=== PATIENT | female | born 1990 | race Caucasian/White ===

== ENCOUNTER 2021-06-08 20:33 | Emergency (ER) | payer MEDICAID ==
[~2021-06-08] VITALS: Ht 157.5 cm; Wt 72.6 kg
[2021-06-08 20:40] VITALS: BP 138/93
--- NOTE | 2021-06-08 20:45 | NUR ---
TREVER TOBIN TAKEN TO BED #5
[2021-06-08] MEDS ORDERED: DOPPLER MC ONE (20:46)
--- NOTE | 2021-06-08 20:57 | NUR ---
doppler used for heart tones rate of 130bpm on the right upper quadrant. ERMD at bedside to hear
[2021-06-08] MEDS ORDERED: NACL 0.9% 1,000 ML IV ONE (21:25)
[2021-06-08 21:39] LABS: BASOPHILS % (AUTO) 0.5 % (0.0-2.0); EOSINOPHILS # (AUTO) 0.1 K/uL (0-0.4); EOSINOPHILS % (AUTO) 0.9 % (0.0-4.0); HEMATOCRIT 38.6 % (36-48); HEMOGLOBIN 13.1 g/dL (12.0-16.0); LYMPHOCYTES # (AUTO) 2.7 K/uL (2.5-16.5); LYMPHOCYTES % (AUTO) 36.1 % (20.5-51.1); MEAN CORPUSCULAR HEMOGLOBIN 30 pg (27-31); MEAN CORPUSCULAR HGB CONC 34 g/dL (33-37); MEAN CORPUSCULAR VOLUME 88.1 fL (80-94); MONOCYTES # (AUTO) 0.6 K/uL (0.8-1.0); MONOCYTES % (AUTO) 8.1 % (1.7-9.3); NEUTROPHILS # (AUTO) 4.1 K/uL (1.8-7.7); NEUTROPHILS % (AUTO) 54.4 % (42.2-75.2); PLATELET COUNT (AUTO) 221 K/uL (140-450); RED BLOOD CELL COUNT(AUTO) 4.38 MIL/uL (4.20-5.40); RED CELL DISTRIBUTION WIDTH 13.8 % (11.6-13.7); WHITE BLOOD COUNT (AUTO) 7.5 K/uL (4.8-10.8)
[2021-06-08 22:04] LABS: ALBUMIN 2.6 g/dL (3.4-5.0); ANION GAP 12.7 (8-16); CARBON DIOXIDE 23.7 mmol/L (21-32); CREATININE 0.6 mg/dL (0.6-1.3); POTASSIUM 3.4 mmol/L (3.5-5.1); TOTAL BILIRUBIN 0.2 mg/dL (0.0-1.0)
--- NOTE | 2021-06-08 22:31 | NUR ---
USED [employer] FOR CONSENT ON CTA OF CHEST WITH IV CONTRAST #[id number]
--- NOTE | 2021-06-08 22:47 | NUR ---
patient to CT via w/c
--- NOTE | 2021-06-08 22:57 | NUR ---
patient back from CT
--- NOTE | 2021-06-08 23:33 | NUR ---
patient ambulated to the bathroom
--- NOTE | 2021-06-09 00:11 | NUR ---
patient ambulated to the bathroom for urine collection
[2021-06-09 00:43] LABS: APPEARANCE,URINE CLEAR (CLEAR); BILIRUBIN,URINE NEGATIVE (NEGATIVE); BLOOD, URINE NEGATIVE (NEGATIVE); COLOR,URINE YELLOW (YELLOW); LEUKOCYTE ESTERASE ,URINE NEGATIVE (NEGATIVE); NITRITE, URINE NEGATIVE (NEGATIVE); UGLUCOSE NEGATIVE (NEGATIVE)
--- NOTE | 2021-06-09 01:00 | NUR ---
IV removed, catheter intact and site benign. Applied folded 4x4 gauze and tape to stop bleeding at left AC and right wrist.
[2021-06-09 01:18] VITALS: BP 137/83
--- NOTE | 2021-06-09 01:18 | NUR ---
Patient discharged with v/s stable. Written and verbal after care instructions given and explained. Patient verbalized understanding. Ambulatory with steady gait. ID band removed. All questions addressed prior to discharge. Advised to follow up with PMD.
== END 2021-06-09 01:18 | disposition home or self-care (01) ==
LOC: MED 20:33
DX: O99.353 Diseases of the nervous system complicating pregnancy, third trimester (principal); R55 Syncope and collapse; O99.513 Diseases of the respiratory system complicating pregnancy, third trimester; R06.02 Shortness of breath; Z3A.34 34 weeks gestation of pregnancy
CPT/HCPCS: 36415; 71275; 80053; 81003; 85025; 93005; 96360; 96361; 99285; J7030; Q9967